=== PATIENT | female | born 1965 | race African-American/Black ===

== ENCOUNTER 2016-03-10 10:15 | Emergency (ER) | payer OTHER ==
[~2016-03-10] VITALS: Ht 167.6 cm; Wt 70.8 kg
[~2016-03-10 10:15] MED LIST: ALPR0.5T PO; AMIT10TA PO; BACL10TA PO; BUDE10.2 IH; CYCL10TA2 PO; CYCL5TAB PO; HYDR-971 PO; IPRA4AER IH; LEVO100T5 PO; LEVO25TA4 PO; NAPR500T8 PO; OXYC-250 PO; OXYC-323 PO; PROVENTIL HFA6.7 GM IH; SUMA100T3 PO; TRAM50TA PO; anxiety med
[2016-03-10 10:27] VITALS: BP 120/67
--- NOTE | 2016-03-10 10:43 | RAD ---
Left wrist, 3 views, 03/10/2016: History: Wrist pain after a fall No acute fracture or dislocation is identified. There is a small accessory ossicle or old nonunited fracture at the level of the ulnar styloid. There is mild soft tissue swelling about the wrist. IMPRESSION: No acute bony abnormality is detected.
--- NOTE | 2016-03-10 10:58 | PHYS DOC ---
Past Medical History Past Medical History: Anxiety, Asthma, Depression, Hypothyroid, Migraines Additional Past Medical Histor: Degenerative disc disease Past Surgical History: Hysterectomy, Other Additional Past Surgical Histo: thyroidectomy Alcohol Use: Occasionally Drug Use: Marijuana Adult General Chief Complaint Chief Complaint: WRIST PAIN HPI HPI Patient is a 51 year old female with history of asthma, anxiety, depression, sciatica pain, who presents today with moderate left wrist pain that began 2 weeks ago after she fell. Patient denies any loss of consciousness, she somehow states she sees the wound doctor but would not discuss for what. She states the wound doctor asked her to come to the ED and have an x-ray of the wrist. She states she took oxycodone prior to coming to the ED. Patient denies any scaphoid pain or tenderness. Patient appears very intoxicated. Review of Systems Review of Systems Constitutional: Denies fever or chills [] Musculoskeletal: Left wrist pain Integument: Denies rash or skin lesions [] Neurologic: Denies headache, focal weakness or sensory changes [] Endocrine: Denies polyuria or polydipsia [] Allergies Allergies Allergies Coded Allergies Type Severity Reaction Last Updated Verified paroxetine Allergy Intermediate swelling 08/28/15 Yes vancomycin Allergy Intermediate vomiting 12/01/13 Yes Physical Exam Physical Exam Constitutional: Well developed, well nourished, no acute distress, non-toxic appearance. [] Skin: Warm, dry, no erythema, no rash. [] Back: No tenderness, no CVA tenderness. [] Extremities: Left wrist with no obvious deformity, no scaphoid tenderness on the left wrist. Diffuse tenderness on the dorsal aspect of the wrist. Small amount soft tissue swelling throughout the wrist. Full range of motion to the wrist. Adequate flexion and extension of the wrist. +2 left radial pulse. Cap refill less than 2 seconds the left upper extremity. Adequate ulna radial and medial sensation to the left wrist Neurologic: Alert and oriented X 3, normal motor function, normal sensory function, no focal deficits noted. [] Psychologic: Affect normal, judgement normal, mood normal. [] Current Patient Data Vital Signs Vital Signs Date Time Temp Pulse Resp B/P Pulse Ox O2 Delivery O2 Flow Rate FiO2 03/10/16 10:27 97.4 94 20 96 Room Air 97.4 EKG EKG [] Radiology/Procedures Radiology/Procedures [] Course & Med Decision Making Course & Med Decision Making Pertinent Labs and Imaging studies reviewed. (See chart for details) Patient is in the ED with left wrist pain after falling 2 weeks ago. Left wrist x-rays interpreted by radiologist is negative for any acute findings. This patient appears intoxicated. She states she took oxycodone prior to coming to the ED. She wanted copies of her results sent to her doctor. Informed patient she has to go through medical records and get copies and they will be sent paper work to her doctor's office. I offered her a copy of her CD. She states she doesn't have time to wait for her CD to be made for her. She already has a splint to her left wrist which she came to the ED with. Neurovascular exam intact to the left fingers. Cap refill less than 2 seconds. Ice elevation and encouraged. Encouraged her to take her own pain medicine as well as anti- inflammatories at home. Gave her Dr. Castaneda's contact number for follow-up, she states Dr. Castaneda recommended her to have surgery to her left elbow for nerve repair and she refused. Dragon Disclaimer Dragon Disclaimer This electronic medical record was generated, in whole or in part, using a voice recognition dictation system. Departure Departure Impression: Primary Impression: Left wrist sprain Additional Impression: Fall from standing Disposition: 01 HOME, SELF-CARE Condition: STABLE Referrals: DEBRA BAIG MD (PCP) JARRELL CASTANEDA MD Follow-up with the orthopedic doctor in a week Patient Instructions: Wrist Sprain with [facility] Additional Instructions: You were seen for wrist sprain after falling. Continue wearing this brace. Keep the wrist iced and elevated. Continue taking your pain medicines as prescribed previously by your doctor. You can also take naproxen for the pain. Follow-up with orthopedic doctor next week. Problem Qualifiers Primary Impression: Left wrist sprain Encounter type: initial encounter Qualified Code: S63.502A - Unspecified sprain of left wrist, initial encounter Additional Impression: Fall from standing Encounter type: initial encounter Qualified Code: W19.XXXA - Unspecified fall, initial encounter SCARLET BROWN JAY Mar 10, 2016 10:58
== END 2016-03-10 11:04 | disposition home or self-care (01) ==
LOC: ER 10:15
DX: S63.502A Unspecified sprain of left wrist, initial encounter (principal); J45.909 Unspecified asthma, uncomplicated; F32.9 Major depressive disorder, single episode, unspecified; F12.10 Cannabis abuse, uncomplicated; E89.0 Postprocedural hypothyroidism; F41.9 Anxiety disorder, unspecified; Z88.8 Allergy status to other drugs, medicaments and biological substances; Z88.1 Allergy status to other antibiotic agents; W18.39XA Other fall on same level, initial encounter; Y93.89 Activity, other specified; Y92.89 Other specified places as the place of occurrence of the external cause; Y99.8 Other external cause status
CPT/HCPCS: 73110; 99284

== ENCOUNTER 2016-04-12 19:25 | Emergency (ER) | payer OTHER ==
[~2016-04-12] VITALS: Ht 170.2 cm; Wt 70.8 kg
[2016-04-12 19:30] VITALS: BP 107/59
== END 2016-04-12 21:16 | disposition left against medical advice (07) ==
LOC: ER 19:25
DX: R06.02 Shortness of breath (principal); Z53.21 Procedure and treatment not carried out due to patient leaving prior to being seen by health care provider

== ENCOUNTER 2016-07-07 19:18 | Emergency (ER) | payer OTHER ==
[~2016-07-07] VITALS: Ht 170.2 cm; Wt 70.8 kg
[2016-07-07 19:32] VITALS: BP 135/96
[2016-07-07] MEDS ORDERED: KETOROLAC TROMETHAMINE 30 MG/ML INJ. IV ONE (20:00)
[2016-07-07] MEDS ORDERED: PROCHLORPERAZINE 10 MG/2 ML VIAL. IV ONE (20:00)
[2016-07-07 20:33] LABS: CALCIUM 9.1 mg/dL (8.5-10.1); CREATININE 1.2 mg/dL (0.6-1.0); GFR 56.9; POTASSIUM 3.7 mmol/L (3.5-5.1)
--- NOTE | 2016-07-07 20:35 | PHYS DOC ---
Past Medical History Past Medical History: Anxiety, Asthma, Depression, Hypothyroid, Migraines, Sciatica Additional Past Medical Histor: Degenerative disc disease, heart murmur Past Surgical History: Hysterectomy, Other Additional Past Surgical Histo: thyroidectomy Alcohol Use: Occasionally Drug Use: Marijuana Adult General Chief Complaint Chief Complaint: MULTIPLE COMPLAINTS HPI HPI Patient is a 51 year old female who presents with concern of thyroid issues. She notes numb/tingly feeling to her hands and feet starting the past day that is constant. She also notes chronic left leg shooting pain that is intermittent and consistent with her chronic sciatica; this is unchanged from chronic issues. She also notes a headache that is left-sided, gradual in onset, typical of her usual migraine. She denies fever or chills, nausea or vomiting, vision changes, dizziness, lightheadedness, chest pain, dyspnea, back pain, abdominal pain, nausea or vomiting, dysuria, diarrhea, weakness. She called [facility] and was directed to come to the emergency department. Review of Systems Review of Systems Constitutional: Denies fever or chills [] Eyes: Denies change in visual acuity, redness, or eye pain [] HENT: Denies nasal congestion or sore throat [] Respiratory: Denies cough or shortness of breath [] Cardiovascular: No additional information not addressed in HPI [] GI: Denies abdominal pain, nausea, vomiting, bloody stools or diarrhea [] : Denies dysuria or hematuria [] Musculoskeletal: Denies back pain or joint pain [] Integument: Denies rash or skin lesions [] Neurologic: Denies focal weakness [] Endocrine: Denies polyuria or polydipsia [] Current Medications Current Medications Current Medications Medications (Trade) Dose Ordered Sig/Lakesha Start Time Stop Time Status Last Admin Dose Admin Ketorolac Tromethamine (Toradol) 15 mg 1X ONCE 07/07/16 20:00 07/07/16 20:01 DC 07/07/16 20:13 15 MG Prochlorperazine Edisylate (Compazine) 10 mg 1X ONCE 07/07/16 20:00 07/07/16 20:01 DC 07/07/16 20:13 10 MG Allergies Allergies Allergies Coded Allergies Type Severity Reaction Last Updated Verified paroxetine Allergy Intermediate swelling 08/28/15 Yes vancomycin Allergy Intermediate vomiting 12/01/13 Yes Physical Exam Physical Exam Constitutional: Well developed, well nourished, no acute distress, non-toxic appearance. [] HENT: Normocephalic, atraumatic, bilateral external ears normal, oropharynx moist, no oral exudates, nose normal. [] Eyes: PERRLA, EOMI. [] Neck: Normal range of motion, supple. [] Cardiovascular:Heart rate regular rhythm [] Lungs & Thorax: Bilateral breath sounds clear to auscultation [] Abdomen: Bowel sounds normal, soft, no tenderness. [] Skin: Warm, dry, no erythema, no rash. [] Back: No tenderness, no CVA tenderness. [] Extremities: No tenderness, ROM intact, no edema, equal 2+ extremity pulses bilaterally. [] Neurologic: Alert and oriented X 3, normal motor function, normal sensory function, no focal deficits noted, cranial nerves II through XII intact. [] Psychologic: Affect normal, judgement normal, mood normal. [] Current Patient Data Vital Signs Vital Signs Date Time Temp Pulse Resp B/P (MAP) Pulse Ox O2 Delivery O2 Flow Rate FiO2 07/07/16 19:32 97.8 77 22 135/96 (109) 98 Room Air 97.8 Lab Values Laboratory Tests Test 07/07/16 20:00 Sodium Level 141 mmol/L (136-145) Potassium Level 3.7 mmol/L (3.5-5.1) Chloride Level 107 mmol/L (98-107) Carbon Dioxide Level 23 mmol/L (21-32) Anion Gap 11 (6-14) Blood Urea Nitrogen 28 mg/dL (7-20) H Creatinine 1.2 mg/dL (0.6-1.0) H Estimated GFR (Cockcroft-Gault) 56.9 Glucose Level 104 mg/dL (70-99) H Calcium Level 9.1 mg/dL (8.5-10.1) Thyroid Stimulating Hormone (TSH) 7.501 uIU/mL (0.358-3.74) H Laboratory Tests 07/07/16 20:00 Course & Med Decision Making Course & Med Decision Making Pertinent Labs and Imaging studies reviewed. (See chart for details) Has elevated TSH, but laboratory evaluation is largely unremarkable otherwise. Her symptoms are improved after medications. She would like to go home. States she has a primary care doctor follow-up tomorrow and will discuss alterations with her thyroid medication. Return precautions given. She understands and agrees with plan. Dragon Disclaimer Dragon Disclaimer This electronic medical record was generated, in whole or in part, using a voice recognition dictation system. Departure Departure Impression: Primary Impression: Hypothyroidism Additional Impressions: Sciatica of left side Headache Disposition: HOME, SELF-CARE Condition: STABLE Referrals: JEF ARBOLEDA (PCP) Patient Instructions: Recurrent Migraine Headache, [id number] Additional Instructions: Your TSH is 7.5. Follow-up with your primary care doctor within one week. Return for any concerns. Problem Qualifiers Primary Impression: Hypothyroidism Hypothyroidism type: unspecified Qualified Codes: E03.9 - Hypothyroidism, unspecified Additional Impressions: Headache Headache type: unspecified Headache chronicity pattern: episodic headache Intractability: not intractable Qualified Codes: R51 - Headache Ivanna CASTELLANO MD July 07, 2016 20:34
== END 2016-07-07 21:10 | disposition home or self-care (01) ==
LOC: ER 20:23
DX: E03.9 Hypothyroidism, unspecified (principal); M54.32 Sciatica, left side; R51 Headache; F41.9 Anxiety disorder, unspecified; F32.9 Major depressive disorder, single episode, unspecified; G89.29 Other chronic pain; G43.909 Migraine, unspecified, not intractable, without status migrainosus; F12.10 Cannabis abuse, uncomplicated; Z88.1 Allergy status to other antibiotic agents; Z88.8 Allergy status to other drugs, medicaments and biological substances
CPT/HCPCS: 36415; 80048; 84443; 96374; 96375; 99284; J0780; J1885

== ENCOUNTER 2016-12-08 10:29 | Emergency (ER) | payer OTHER ==
[~2016-12-08] VITALS: Ht 170.2 cm; Wt 61.2 kg
[~2016-12-08 10:29] MED LIST changes: -OXYC-250 PO; +OXYC-328 PO
[2016-12-08 10:44] VITALS: BP 129/89
[2016-12-08] MEDS ORDERED: KETOROLAC 60 MG/2 ML INJ. IM ONE (11:00)
[2016-12-08] MEDS ORDERED: SUMAtriptan SUCCINATE 25 MG TABLET PO ONE (11:00)
[2016-12-08] MEDS ORDERED: diphenhydrAMINE HCL 25 MG CAPSULE PO ONE (11:00)
[2016-12-08] MEDS ORDERED: PROMETHAZINE IM 25 MG/ML VIAL IM ONE (11:00)
[2016-12-08] MEDS ORDERED: PROC10TA57 PO (11:25)
[2016-12-08] MEDS ORDERED: SUMA100T3 PO (11:25)
--- NOTE | 2016-12-08 11:25 | PHYS DOC ---
Past Medical History Past Medical History: Anxiety, Asthma, Depression, Hypothyroid, Migraines, Sciatica Additional Past Medical Histor: Degenerative disc disease, heart murmur Past Surgical History: Hysterectomy, Other Additional Past Surgical Histo: thyroidectomy Alcohol Use: Occasionally Drug Use: Marijuana Adult General Chief Complaint Chief Complaint: MULTIPLE COMPLAINTS [facility] HPI Patient is a 51 year old female with a history of migraine headaches, sciatica , hypothyroidism, who presents today with mild frontal migraine headache with intermittent episodes of nausea vomiting that has been going on for the last 5 days. Patient denies any vomiting. She states she's had photosensitivity. Patient states she normally takes propranolol, Topamax and Imitrex for her headache, she states she ran out of the Imitrex. Patient denies this being the worst headache in her life Review of Systems Review of Systems Constitutional: Denies fever or chills [] Eyes: Denies change in visual acuity, redness, or eye pain [] HENT: Denies nasal congestion or sore throat [] Respiratory: Denies cough or shortness of breath [] Cardiovascular: No additional information not addressed in HPI [] GI: Denies abdominal pain, nausea, vomiting, bloody stools or diarrhea [] : Denies dysuria or hematuria [] Musculoskeletal: Denies back pain or joint pain [] Integument: Denies rash or skin lesions [] Neurologic: Migraine headache, denies focal weakness or sensory changes [] Current Medications Current Medications Current Medications Medications (Trade) Dose Ordered Sig/Lakesha Start Time Stop Time Status Last Admin Dose Admin Diphenhydramine HCl (Benadryl) 25 mg 1X ONCE 12/08/16 11:00 12/08/16 11:01 DC Ketorolac Tromethamine (Toradol Im) 60 mg 1X ONCE 12/08/16 11:00 12/08/16 11:01 DC Promethazine HCl (Phenergan Im) 12.5 mg 1X ONCE 12/08/16 11:00 12/08/16 11:01 DC Sumatriptan Succinate (Imitrex) 25 mg 1X ONCE 12/08/16 11:00 12/08/16 11:01 DC Allergies Allergies Allergies Coded Allergies Type Severity Reaction Last Updated Verified paroxetine Allergy Intermediate swelling 08/28/15 Yes vancomycin Allergy Intermediate vomiting 12/01/13 Yes Physical Exam Physical Exam Constitutional: Well developed, well nourished, no acute distress, non-toxic appearance. [] HENT: Normocephalic, atraumatic, bilateral external ears normal, oropharynx moist, no oral exudates, nose normal. [] Eyes: PERRLA, EOMI, conjunctiva normal, no discharge. [] Neck: Normal range of motion, no tenderness, supple, no stridor. [] Cardiovascular:Heart rate regular rhythm, no murmur [] Lungs & Thorax: Bilateral breath sounds clear to auscultation [] Abdomen: Bowel sounds normal, soft, no tenderness, no masses, no pulsatile masses. [] Skin: Warm, dry, no erythema, no rash. [] Back: No tenderness, no CVA tenderness. [] Extremities: No tenderness, no cyanosis, no clubbing, ROM intact, no edema. [] Neurologic: Alert and oriented X 3, normal motor function, normal sensory function, no focal deficits noted. Cranial nerves II through XII intact Psychologic: Affect normal, judgement normal, mood normal. [] Current Patient Data Vital Signs Vital Signs Date Time Temp Pulse Resp B/P (MAP) Pulse Ox O2 Delivery O2 Flow Rate FiO2 12/08/16 10:44 98.2 80 20 100 Room Air 98.2 EKG EKG [] Radiology/Procedures Radiology/Procedures [] Course & Med Decision Making Course & Med Decision Making Pertinent Labs and Imaging studies reviewed. (See chart for details) This is a 51-year-old female patient with history of migraine headaches presenting today with exacerbation of her headaches. There is nothing unusual about her headache today apart from patient running out of her Imitrex. Prescription for Imitrex was given from the ED, she was given pain relief in the Ed. She is to follow-up with her own PCP or neurologist in the next 7 days. Dragon Disclaimer Dragon Disclaimer This electronic medical record was generated, in whole or in part, using a voice recognition dictation system. Departure Departure Impression: Primary Impression: Migraine headache without aura Disposition: HOME, SELF-CARE Condition: STABLE Referrals: JEF ARBOLEDA (PCP) follow up in one week Patient Instructions: Migraine Headache, [id number] Additional Instructions: You were seen with exacerbation of your migraine headache. We wrote a prescription for Imitrex, take it as prescribed, continue taking propranolol and Topamax for migraine headaches. Follow-up with your doctor in the next 1 week. Come back to the ED if symptoms worsen. Scripts Prochlorperazine Maleate (Compazine) 10 Mg Tablet 10 MG PO Q8HRS, #20 TAB Prov: SCARLET BROWN APRN 12/08/16 Sumatriptan Succinate (IMITREX) 100 Mg Tablet 1 TAB PO UD, #9 TAB 1 Refill Prov: SCARLET BROWN APRN 12/08/16 Problem Qualifiers Primary Impression: Migraine headache without aura Status migrainosus presence: without status migrainosus Intractability: not intractable Qualified Codes: G43.009 - Migraine without aura, not intractable , without status migrainosus SCARLET BROWN APRN Dec 08, 2016 11:25
== END 2016-12-08 11:53 | disposition home or self-care (01) ==
LOC: ER 10:29
DX: G43.009 Migraine without aura, not intractable, without status migrainosus (principal); J45.909 Unspecified asthma, uncomplicated; E03.9 Hypothyroidism, unspecified; Z88.1 Allergy status to other antibiotic agents; Z88.8 Allergy status to other drugs, medicaments and biological substances
CPT/HCPCS: 96372; 99284; J1885; J2550; Q0163

== ENCOUNTER 2017-09-07 10:54 | Emergency (ER) | payer OTHER ==
[2017-09-07 11:33] LABS: ADD MAN DIFF? NO
[2017-09-07] MEDS: METOCLOPRAMIDE HCL 10 MG/2 ML VIAL. IV (11:35)
[2017-09-07 11:36] LABS: BASO # 0.1 x10^3/uL (0.0-0.2); BASO % 2 % (0-3); EOS # 0.6 x10^3/uL (0.0-0.7); EOS % 10 % (0-3); HEMATOCRIT 41.8 % (36.0-47.0); HEMOGLOBIN 14.1 g/dL (12.0-15.5); LYMPH # 2.2 x10^3/uL (1.0-4.8); LYMPH % 39 % (24-48); MEAN CORPUSCULAR HEMOGLOBIN 33 pg (25-35); MEAN CORPUSCULAR HGB CONC 34 g/dL (31-37); MEAN CORPUSCULAR VOLUME 97 fL (79-100); MONO # 0.2 x10^3/uL (0.0-1.1); MONO % 4 % (0-9); NEUT # 2.7 x10^3uL (1.8-7.7); NEUT % 46 % (31-73); PLATELET COUNT 329 x10^3/uL (140-400); RED BLOOD COUNT 4.32 x10^6/uL (3.50-5.40); WHITE BLOOD COUNT 5.8 x10^3/uL (4.0-11.0)
[2017-09-07] MEDS: diphenhydrAMINE 50 MG/ML VIAL IVP (11:37)
[2017-09-07] MEDS: DEXAMETHASONE SOD PHOS 4 MG/ML VIAL IV (11:37)
[2017-09-07] MEDS: KETOROLAC 30 MG/ML INJ. IV (11:38)
[2017-09-07 11:43] LABS: ANION GAP 11 (6-14); BLOOD UREA NITROGEN 14 mg/dL (7-20); BUN/CREATININE RATIO 12 (6-20); CALCIUM 9.7 mg/dL (8.5-10.1); CARBON DIOXIDE 25 mmol/L (21-32); CHLORIDE 103 mmol/L (98-107); CREATININE 1.2 mg/dL (0.6-1.0); GFR 56.6; GLUCOSE 106 mg/dL (70-99); POTASSIUM 3.9 mmol/L (3.5-5.1); SODIUM 139 mmol/L (136-145)
[2017-09-07 11:49] LABS: ALBUMIN 4.1 g/dL (3.4-5.0); ALBUMIN/GLOBULIN RATIO 0.9 (1.0-1.7); ALK PHOS 76 U/L (46-116); ALT (SGPT) 36 U/L (14-59); AST (SGOT) 16 U/L (15-37); TOTAL BILIRUBIN 0.2 mg/dL (0.2-1.0); TOTAL PROTEIN 8.5 g/dL (6.4-8.2)
[2017-09-07 11:54] LABS: BILIRUBIN,URINE NEGATIVE (NEG); CLARITY,URINE CLEAR; COLOR,URINE YELLOW; GLUCOSE,URINE NEGATIVE (NEG); NITRITE,URINE NEGATIVE (NEG); PROTEIN,URINE NEGATIVE (NEG-TRACE); UROBILINOGEN,URINE 0.2 mg/dL (0.2 mg/dL)
[2017-09-07 12:05] LABS: BACTERIA,URINE MANY /HPF (0-FEW); RBC,URINE 0 /HPF (0-2)
== END 2017-09-07 13:24 | disposition home or self-care (01) ==
LOC: ER 10:54
DX: G43.009 Migraine without aura, not intractable, without status migrainosus (principal); E03.9 Hypothyroidism, unspecified; J45.909 Unspecified asthma, uncomplicated; Z88.1 Allergy status to other antibiotic agents; Z88.8 Allergy status to other drugs, medicaments and biological substances
CPT/HCPCS: 36415; 80053; 81001; 85025; 96374; 96375; 99284-25; J1100; J1200; J1885; J2765

== ENCOUNTER 2017-09-10 18:14 | Emergency (ER) | payer OTHER ==
[2017-09-10] MEDS: LIDOCAINE WITH 8.4% SOD BICARB 3 ML DISP.SYRIN. INJ ×2 (18:55→18:56)
== END 2017-09-10 19:11 | disposition home or self-care (01) ==
LOC: ER 18:14
DX: N76.0 Acute vaginitis (principal); F41.9 Anxiety disorder, unspecified; J45.909 Unspecified asthma, uncomplicated; F32.9 Major depressive disorder, single episode, unspecified; E03.9 Hypothyroidism, unspecified; G43.909 Migraine, unspecified, not intractable, without status migrainosus; Z88.1 Allergy status to other antibiotic agents; Z88.8 Allergy status to other drugs, medicaments and biological substances
CPT/HCPCS: 56405; 99284

== ENCOUNTER 2018-02-01 10:06 | Emergency (ER) | payer OTHER ==
[~2018-02-01] VITALS: Ht 170.2 cm; Wt 63.5 kg
[~2018-02-01 10:06] MED LIST changes: +CEPH500C PO; +HYDR-3164 PO; -HYDR-971 PO; -OXYC-323 PO; -OXYC-328 PO; +OXYC1TAB15 PO; +OXYC1TAB22 PO; +PROC10TA57 PO; +SULF1TAB24 PO
[2018-02-01] MEDS ORDERED: ONDANSETRON ODT 4 MG TAB.RAPDIS. PO ONE (10:30)
[2018-02-01] MEDS ORDERED: DEXAMETHASONE SOD PHOS 20 MG/5 ML VIAL. IV ONE (10:30)
--- NOTE | 2018-02-01 10:33 | PHYS DOC ---
Past Medical History Past Medical History: Anxiety, Asthma, Depression, Hypothyroid, Migraines, Sciatica Additional Past Medical Histor: Degenerative disc disease, heart murmur, CHRONIC BACK PAIN Past Surgical History: Hysterectomy, Other Additional Past Surgical Histo: thyroidectomy Alcohol Use: Occasionally Drug Use: Marijuana Adult General Chief Complaint Chief Complaint: BACK PAIN - NO INJURY HPI HPI Patient is a 53 year old female presents for evaluation of headache for 3 weeks. Patient states 3 weeks ago she was moving the furniture around in her bedroom, one of the rails to her bed tipped over and hit her in her right eye in the right side of her nose. She reports no loss of consciousness, no bleeding or bruising. States the area is still somewhat tender. She is not having any pain with movement of her eyes. Denies any redness or visual changes to the eyes. Also states she feels like a cyst is coming up on the right side of her vagina again it would like to have it evaluated. She has had to have it incised and drained in the past. Also has history of chronic back pain which is still bothering her today. She does have a primary care provider. She is not having any loss of bowel or bladder function, no numbness or tingling. Review of Systems Review of Systems Constitutional: Denies fever or chills [] Eyes: Denies change in visual acuity, redness, or eye pain [] HENT: Denies nasal congestion or sore throat [] Respiratory: Denies cough or shortness of breath [] Cardiovascular: No additional information not addressed in HPI [] GI: Denies abdominal pain, nausea, vomiting, bloody stools or diarrhea [] : Denies dysuria or hematuria [] Musculoskeletal: Reports back pain Integument: Denies rash or skin lesions [] Neurologic: Denies headache, focal weakness or sensory changes [] Endocrine: Denies polyuria or polydipsia [] All other systems were reviewed and found to be within normal limits, except as documented in this note. Current Medications Current Medications Current Medications Medications (Trade) Dose Ordered Sig/Lakesha Start Time Stop Time Status Last Admin Dose Admin Dexamethasone Sodium Phosphate (Decadron) 10 mg 1X ONCE 02/01/18 10:30 02/01/18 10:32 DC 02/01/18 10:56 10 MG Ketorolac Tromethamine (Toradol 30mg Vial) 30 mg 1X ONCE 02/01/18 10:45 02/01/18 10:46 DC 02/01/18 10:57 30 MG Ondansetron HCl (Zofran Odt) 4 mg 1X ONCE 02/01/18 10:30 02/01/18 10:32 DC 02/01/18 10:56 4 MG Allergies Allergies Allergies Coded Allergies Type Severity Reaction Last Updated Verified paroxetine Allergy Intermediate swelling 08/28/15 Yes vancomycin Allergy Intermediate vomiting 12/01/13 Yes Physical Exam Physical Exam Constitutional: Well developed, well nourished, no acute distress, non-toxic appearance. [] HENT: Normocephalic, atraumatic, bilateral external ears normal, oropharynx moist, no oral exudates, nose normal. No contusions to the right orbit, no nasal contusions or swelling, no septal deviation [] Eyes: PERRLA, EOMI, conjunctiva normal, no discharge. [] Neck: Normal range of motion, no tenderness, supple, no stridor. [] Cardiovascular:Heart rate regular rhythm, no murmur [] Lungs & Thorax: Bilateral breath sounds clear to auscultation [] : Parts Identification Technician present for visual exam of the labia, no noted cysts or abscesses Skin: Warm, dry, no erythema, no rash. [] Back: Diffuse muscular tenderness through the lumbar back, no CVA tenderness, no midline tenderness. [] Neurologic: Alert and oriented X 3, normal motor function, normal sensory function, no focal deficits noted. [] Psychologic: Affect normal, judgement normal, mood normal. [] Current Patient Data Vital Signs Vital Signs Date Time Temp Pulse Resp B/P (MAP) Pulse Ox O2 Delivery O2 Flow Rate FiO2 02/01/18 11:15 82 16 132/84 (100) 100 Room Air 02/01/18 10:15 98.0 98.0 EKG EKG [] Radiology/Procedures Radiology/Procedures [] Course & Med Decision Making Course & Med Decision Making Pertinent Labs and Imaging studies reviewed. (See chart for details) [Was given medications for her headache, pain resolution after meds. Recommend close follow-up with primary care physician 2-3 days, return to ER for new or worsening symptoms.] Staff Physician Addendum: I was working in the ER during the course of this patient's visit. I was available for consultation as needed, but I was not directly involved in the care of this patient. Dragon Disclaimer Dragon Disclaimer This electronic medical record was generated, in whole or in part, using a voice recognition dictation system. Departure Departure Impression: Primary Impression: Facial contusion Additional Impressions: Back pain Head ache Disposition: HOME, SELF-CARE Condition: STABLE Referrals: JEF ARBOLEDA (PCP) Patient Instructions: General Headache Without Cause, [id number]-[id number] Problem Qualifiers KAYLYNN ELLIOTT APRN Feb 01, 2018 10:33 NASEEM DALE MD Feb 01, 2018 15:23
[2018-02-01] MEDS ORDERED: KETOROLAC 30 MG/ML VIAL. IM ONE (10:45)
[2018-02-01 11:15] VITALS: BP 132/84
== END 2018-02-01 11:17 | disposition home or self-care (01) ==
LOC: ER 10:06
DX: S00.83XA Contusion of other part of head, initial encounter (principal); M54.5 Low back pain; R51 Headache; G43.909 Migraine, unspecified, not intractable, without status migrainosus; E03.9 Hypothyroidism, unspecified; F41.9 Anxiety disorder, unspecified; J45.909 Unspecified asthma, uncomplicated; G89.29 Other chronic pain; Z90.710 Acquired absence of both cervix and uterus; Z88.1 Allergy status to other antibiotic agents; Z88.8 Allergy status to other drugs, medicaments and biological substances; W22.8XXA Striking against or struck by other objects, initial encounter; Y93.89 Activity, other specified; Y92.89 Other specified places as the place of occurrence of the external cause; Y99.8 Other external cause status
CPT/HCPCS: 96372; 96374; 99283; J1100; J1885; Q0162